=== PATIENT | male | born 2000 ===

== ENCOUNTER 2022-02-18 13:51 | Emergency (ER) | payer OTHER, SELFPAY ==
[2022-02-18 14:54] VITALS: BP 125/84; PULSE 67; RESP 16; TEMP 37.3; O2SAT 100
[2022-02-18 15:05] VITALS: BP 125/84; PULSE 67; RESP 16; TEMP 37.3; O2SAT 100; BMI 17.4
== END 2022-02-18 22:16 | disposition left against medical advice (07) ==
PROVIDERS: Emergency Provider Emergency Medicine
DX: R06.00 Dyspnea, unspecified (principal)